=== PATIENT | female | born 1990 | race Caucasian/White ===

== ENCOUNTER 2017-09-07 14:14 | Emergency (ER) | payer MEDICAID ==
[~2017-09-07] VITALS: Ht 157.5 cm; Wt 63.5 kg
[2017-09-07 14:29] VITALS: BP_SYST 122
[2017-09-07 15:39] VITALS: BP_SYST 122
== END 2017-09-07 15:39 | disposition home or self-care (01) ==
LOC: SED 14:14
DX: K52.9 Noninfective gastroenteritis and colitis, unspecified (principal); R03.0 Elevated blood-pressure reading, without diagnosis of hypertension; Z90.49 Acquired absence of other specified parts of digestive tract
CPT/HCPCS: 99283

== ENCOUNTER 2018-05-10 11:14 | Emergency (ER) | payer MEDICAID ==
[~2018-05-10] VITALS: Ht 157.5 cm; Wt 65.3 kg
[2018-05-10 11:27] VITALS: BP_SYST 135
[2018-05-10 12:00] LABS: BILIRUBIN,URINE NEGATIVE (NEGATIVE); BLOOD, URINE NEGATIVE (NEGATIVE); CLARITY/URINE HAZY (CLEAR); COLOR,URINE YELLOW (YELLOW); GLUCOSE,URINE NEGATIVE (NEGATIVE); KETONES,URINE NEGATIVE (NEGATIVE); LEUKOCYTE ESTERASE ,URINE 3+ (NEGATIVE); NITRITE, URINE NEGATIVE (NEGATIVE); PROTEIN URINE NEGATIVE (NEGATIVE); UROBILINOGEN,URINE 0.2 (0.2-1.0)
[2018-05-10 12:13] LABS: BACTERIA,URINE MODERATE /HPF (None Seen); MUCUS,URINE 1+ /LPF (None Seen); WBC,URINE 20-50 /HPF (0-3)
[2018-05-10 14:07] VITALS: BP_SYST 135
== END 2018-05-10 14:07 | disposition home or self-care (01) ==
LOC: SED 11:14
DX: N39.0 Urinary tract infection, site not specified (principal)
CPT/HCPCS: 81000-TC; 81025; 87086; 99283

== ENCOUNTER 2018-06-02 20:27 | Emergency (ER) | payer MEDICAID ==
[~2018-06-02] VITALS: Ht 157.5 cm; Wt 66.2 kg
[2018-06-02 20:44] VITALS: BP_SYST 137
[2018-06-02 21:21] LABS: BILIRUBIN,URINE NEGATIVE (NEGATIVE); CLARITY/URINE CLEAR (CLEAR); COLOR,URINE YELLOW (YELLOW); GLUCOSE,URINE NEGATIVE (NEGATIVE); KETONES,URINE NEGATIVE (NEGATIVE); LEUKOCYTE ESTERASE ,URINE 3+ (NEGATIVE); NITRITE, URINE NEGATIVE (NEGATIVE); PROTEIN URINE NEGATIVE (NEGATIVE); UROBILINOGEN,URINE 0.2 (0.2-1.0)
[2018-06-02 21:22] LABS: BLOOD, URINE TRACE (NEGATIVE)
[2018-06-02 21:23] LABS: BACTERIA,URINE MODERATE /HPF (None Seen); RBC,URINE 0-3 /HPF (0-3); WBC,URINE 50-80 /HPF (0-3)
[2018-06-02] MEDS ORDERED: KETOROLAC TROMETHAMINE 30 MG VIAL IM ONE (22:15)
[2018-06-02] MEDS ORDERED: cefTRIAXone 1 GM VIAL IM ONE (22:15)
[2018-06-02] MEDS ORDERED: LIDOCAINE 1% 10 MG/ML, 20 ML MDV INJ ONE (22:15)
[2018-06-02 22:20] VITALS: BP_SYST 134
== END 2018-06-02 22:20 | disposition home or self-care (01) ==
LOC: SED 20:27
DX: N12 Tubulo-interstitial nephritis, not specified as acute or chronic (principal); Z90.49 Acquired absence of other specified parts of digestive tract
CPT/HCPCS: 74176; 81000; 81025; 87086; 96372; 99284; J0696; J1885; J2001

== ENCOUNTER 2018-08-07 15:57 | Emergency (ER) | payer MEDICAID ==
[~2018-08-07] VITALS: Ht 157.5 cm; Wt 71.2 kg
[2018-08-07 16:04] VITALS: BP_SYST 116
--- NOTE | 2018-08-07 17:39 | NUR ---
Patient to ER [place] 1 to [facility] for evaluation. Side rails up. Report given to Damari CALLE.
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
--- NOTE | 2018-08-07 18:00 | NUR ---
Dr Lieberman at bedside examining patient
[2018-08-07] MEDS: CEPHALEXIN 500 MG CAPSULE PO ONE (18:16)
--- NOTE | 2018-08-07 18:30 | NUR ---
Pt on stable condition,VSS.
[2018-08-07 18:38] LABS: CALCIUM 9.4 mg/dL (8.4-11.0); CREATININE 0.72 mg/dL (0.55-1.30)
[2018-08-07 18:40] LABS: PROTHROMBIN TIME 9.9 SECS (9.5-12.5)
[2018-08-07 18:43] LABS: ALBUMIN 3.5 g/dL (3.4-4.8); TOTAL BILIRUBIN 0.2 mg/dL (0.0-1.0)
[2018-08-07 18:51] LABS: HEMATOCRIT 39.7 % (36-48); HEMOGLOBIN 13.3 g/dL (12.0-16.0); LYMPHOCYTES % (AUTO) 31.1 % (20.5-51.5); MEAN CORPUSCULAR HEMOGLOBIN 29 pg (27-31); MEAN CORPUSCULAR HGB CONC 33 % (32-36); MEAN CORPUSCULAR VOLUME 86 fL (79.0-98.0); NEUTROPHILS % (AUTO) 60.1 % (40.0-70.0); PLATELET COUNT (AUTO) 321 K/uL (130-430); RED CELL DISTRIBUTION WIDTH 12.6 % (9.0-15.0)
[2018-08-07 18:52] LABS: BASOPHILS # (AUTO) 0.1 K/uL (0.0-0.2); BASOPHILS % (AUTO) 0.5 % (0.0-2.0); EOSINOPHILS # (AUTO) 0.1 K/uL (0.0-0.4); EOSINOPHILS % (AUTO) 1.2 % (0.0-4.0); LYMPHOCYTES # (AUTO) 3.4 K/uL (1.0-5.5); MONOCYTES # (AUTO) 0.8 K/uL (0.0-1.0); MONOCYTES % (AUTO) 7.1 % (1.7-9.3); NEUTROPHILS # (AUTO) 6.6 K/uL (1.8-7.7); WHITE BLOOD COUNT (AUTO) 10.9 K/uL (4.8-10.8)
[2018-08-07] MEDS: MORPHINE 4 MG/ML INJ. SYRINGE IM ONE (19:47)
[2018-08-07 20:14] VITALS: BP_SYST 112
--- NOTE | 2018-08-07 20:16 | NUR ---
Patient given written and verbal discharge instructions and verbalizes understanding. ER MD discussed with patient the results and treatment provided. Patient in stable condition. ID arm band removed. Rx of Keflex and [place] given. Patient educated on pain management and to follow up with PMD. Pain Scale 2/10 tolerable for patient . Opportunity for questions provided and answered. Medication side effect fact sheet provided.
--- NOTE | 2018-08-08 16:09 | NUR ---
Pharmacy called with concern that the patient has been previously prescribed tramadol and there was concern about concurrent Rx of [place]. This was not diclosed to Dr. Lieberman yesterday, with this in mind Rx was voided pending follow up with PCP.
== END 2018-08-07 20:14 | disposition home or self-care (01) ==
LOC: SED 15:57
DX: S33.5XXA Sprain of ligaments of lumbar spine, initial encounter (principal); Z90.49 Acquired absence of other specified parts of digestive tract; V43.52XA Car driver injured in collision with other type car in traffic accident, initial encounter; Y93.89 Activity, other specified; Y92.411 Interstate highway as the place of occurrence of the external cause; Y99.8 Other external cause status
CPT/HCPCS: 36415; 72131; 80053; 81002; 81025; 85025; 85610; 87086; 96372; 99284; J2270

== ENCOUNTER 2018-09-02 13:49 | Emergency (ER) | payer MEDICAID ==
[~2018-09-02] VITALS: Ht 157.5 cm; Wt 68.0 kg
[2018-09-02 14:01] VITALS: BP_SYST 125
--- NOTE | 2018-09-02 14:06 | NUR ---
Patient triaged and placed in waiting room. VSS and patient appears in no acute distress at this time. Accompanied by visitor, awaiting available bed, and MD notified of need for MSE.
[2018-09-02 15:04] LABS: BASOPHILS % (AUTO) 0.4 % (0.0-2.0); EOSINOPHILS # (AUTO) 0.1 K/uL (0.0-0.4); EOSINOPHILS % (AUTO) 1.4 % (0.0-4.0); HEMATOCRIT 38.1 % (36-48); HEMOGLOBIN 12.7 g/dL (12.0-16.0); LYMPHOCYTES # (AUTO) 2.8 K/uL (1.0-5.5); LYMPHOCYTES % (AUTO) 29.7 % (20.5-51.5); MEAN CORPUSCULAR HEMOGLOBIN 29 pg (27-31); MEAN CORPUSCULAR HGB CONC 33 % (32-36); MEAN CORPUSCULAR VOLUME 87 fL (79.0-98.0); MONOCYTES # (AUTO) 0.6 K/uL (0.0-1.0); MONOCYTES % (AUTO) 6.7 % (1.7-9.3); NEUTROPHILS # (AUTO) 5.8 K/uL (1.8-7.7); NEUTROPHILS % (AUTO) 61.8 % (40.0-70.0); PLATELET COUNT (AUTO) 300 K/uL (130-430); RED CELL DISTRIBUTION WIDTH 12.3 % (9.0-15.0); WHITE BLOOD COUNT (AUTO) 9.3 K/uL (4.8-10.8)
[2018-09-02 15:33] LABS: POTASSIUM 4.2 mmol/L (3.5-5.1)
[2018-09-02 15:34] LABS: ALBUMIN 3.3 g/dL (3.4-4.8); CALCIUM 9.2 mg/dL (8.4-11.0); CREATININE 0.77 mg/dL (0.55-1.30); TOTAL BILIRUBIN 0.2 mg/dL (0.0-1.0)
--- NOTE | 2018-09-02 15:40 | NUR ---
Patient to ER bed H1 for evaluation. Side rails up.
--- NOTE | 2018-09-02 15:45 | NUR ---
ER Dr. Soto at bedside examining patient.
--- NOTE | 2018-09-02 15:50 | NUR ---
Pt AAOx4 ambulated into ED c/o sore throat, cough, congestion x 5 days. No cough present in ED. Skin pink dry and warm, breathing even and unlabored. No other injuries/complaints per pt/noted. Will continue to monitor.
[2018-09-02 15:52] LABS: BILIRUBIN,URINE NEGATIVE (NEGATIVE); CLARITY/URINE CLEAR (CLEAR); COLOR,URINE YELLOW (YELLOW); GLUCOSE,URINE NEGATIVE (NEGATIVE); KETONES,URINE NEGATIVE (NEGATIVE); LEUKOCYTE ESTERASE ,URINE 1+ (NEGATIVE); NITRITE, URINE NEGATIVE (NEGATIVE); PH,URINE 5.5 (5.0-8.0); PROTEIN URINE NEGATIVE (NEGATIVE); UROBILINOGEN,URINE 0.2 (0.2-1.0)
[2018-09-02 15:59] LABS: BLOOD, URINE TRACE (NEGATIVE)
[2018-09-02 16:00] LABS: BACTERIA,URINE FEW /HPF (None Seen); MUCUS,URINE None Seen /LPF (None Seen); RBC,URINE NONE SEEN /HPF (0-3)
[2018-09-02] MEDS ORDERED: KETOROLAC TROMETHAMINE 30 MG VIAL IM ONE (16:00)
--- NOTE | 2018-09-02 16:07 | NUR ---
Pt refused Toradol
--- NOTE | 2018-09-02 16:13 | NUR ---
Patient given written and verbal discharge instructions and verbalizes understanding. ER MD Soto discussed with patient the results and treatment provided. Patient in stable condition. ID arm band removed. Rx of Chloraseptic, Tylenol given. Patient educated on pain management and to follow up with PMD. Pain Scale 2. MD Soto aware. Opportunity for questions provided and answered. Medication side effect fact sheet provided.
[2018-09-02 16:14] VITALS: BP_SYST 128
== END 2018-09-02 16:14 | disposition home or self-care (01) ==
LOC: SED 13:49
DX: J02.8 Acute pharyngitis due to other specified organisms (principal); B97.89 Other viral agents as the cause of diseases classified elsewhere; R07.89 Other chest pain; R53.83 Other fatigue; R03.0 Elevated blood-pressure reading, without diagnosis of hypertension; Z90.49 Acquired absence of other specified parts of digestive tract
CPT/HCPCS: 36415; 80053; 81000; 81025; 85025; 86403; 87081; 87086; 99283; J1885

== ENCOUNTER 2018-10-24 20:02 | Emergency (ER) | payer MEDICAID ==
[~2018-10-24] VITALS: Ht 157.5 cm; Wt 72.1 kg
[2018-10-24 20:09] VITALS: BP_SYST 135
[2018-10-24 20:53] LABS: BILIRUBIN,URINE NEGATIVE (NEGATIVE); BLOOD, URINE NEGATIVE (NEGATIVE); CLARITY/URINE SL HAZY (CLEAR); COLOR,URINE YELLOW (YELLOW); GLUCOSE,URINE NEGATIVE (NEGATIVE); KETONES,URINE NEGATIVE (NEGATIVE); LEUKOCYTE ESTERASE ,URINE 2+ (NEGATIVE); NITRITE, URINE NEGATIVE (NEGATIVE); PH,URINE 6.5 (5.0-8.0); PROTEIN URINE NEGATIVE (NEGATIVE); UROBILINOGEN,URINE 0.2 (0.2-1.0)
--- NOTE | 2018-10-24 21:00 | NUR ---
Patient to ER bed 05 to gown for evaluation. Side rails up.
[2018-10-24 21:05] LABS: BACTERIA,URINE FEW /HPF (None Seen); MUCUS,URINE None Seen /LPF (None Seen); RBC,URINE 0-3 /HPF (0-3); WBC,URINE 0-3 /HPF (0-3)
--- NOTE | 2018-10-24 21:10 | NUR ---
Patient AOx4, ambulatory, presents to ER with complaint of urinary burning, frequency, abdominal pain 6/10 radiating to lower back, and nausea x1 week. No report of hematuria or fever. Patient states hx of brain tumors and has had 2 brain surgeries. No other symptoms or complaints.
--- NOTE | 2018-10-24 22:02 | NUR ---
ER MD Lieberman at bedside for medical evaluation.
[2018-10-24 22:53] LABS: BASOPHILS # (AUTO) 0.1 K/uL (0.0-0.2); EOSINOPHILS # (AUTO) 0.3 K/uL (0.0-0.4); EOSINOPHILS % (AUTO) 2.9 % (0.0-4.0); HEMATOCRIT 36.6 % (36-48); HEMOGLOBIN 12.3 g/dL (12.0-16.0); LYMPHOCYTES # (AUTO) 3.5 K/uL (1.0-5.5); LYMPHOCYTES % (AUTO) 38.4 % (20.5-51.5); MEAN CORPUSCULAR HEMOGLOBIN 29 pg (27-31); MEAN CORPUSCULAR HGB CONC 34 % (32-36); MEAN CORPUSCULAR VOLUME 85 fL (79.0-98.0); MONOCYTES # (AUTO) 0.6 K/uL (0.0-1.0); MONOCYTES % (AUTO) 6.9 % (1.7-9.3); NEUTROPHILS # (AUTO) 4.6 K/uL (1.8-7.7); NEUTROPHILS % (AUTO) 50.8 % (40.0-70.0); PLATELET COUNT (AUTO) 298 K/uL (130-430); RED BLOOD CELL COUNT(AUTO) 4.29 MIL/uL (4.2-6.2); WHITE BLOOD COUNT (AUTO) 9.1 K/uL (4.8-10.8)
[2018-10-24 23:04] LABS: CALCIUM 8.8 mg/dL (8.4-11.0); CREATININE 0.79 mg/dL (0.55-1.30); POTASSIUM 4.2 mmol/L (3.5-5.1)
[2018-10-24 23:10] LABS: ALBUMIN 2.9 g/dL (3.4-4.8); TOTAL BILIRUBIN 0.1 mg/dL (0.0-1.0)
[2018-10-24] MEDS ORDERED: NITROFURANTOIN MONOHYD/M-CRYST 100 MG CAPSULE PO ONE (23:30)
[2018-10-24] MEDS ORDERED: PHENAZOPYRIDINE HCL 100 MG TABLET PO ONE (23:30)
[2018-10-24] MEDS ORDERED: PHENAZOPYRIDINE HCL 100 MG TABLET ONE (23:43)
[2018-10-24 23:54] VITALS: BP_SYST 132
--- NOTE | 2018-10-24 23:54 | NUR ---
Patient given written and verbal discharge instructions and verbalizes understanding. ER MD discussed with patient the results and treatment provided. Patient in stable condition. ID arm band removed. Rx of Pyridium and Macrobid given. Patient educated on pain management and to follow up with PMD. Pain Scale 0/10. Opportunity for questions provided and answered. Medication side effect fact sheet provided.
== END 2018-10-24 23:54 | disposition home or self-care (01) ==
LOC: SED 20:02
DX: N39.0 Urinary tract infection, site not specified (principal); R03.0 Elevated blood-pressure reading, without diagnosis of hypertension
CPT/HCPCS: 36415; 80053; 81000-TC; 85025; 87086; 99283

== ENCOUNTER 2020-06-12 14:16 | Emergency (ER) | payer MEDICAID ==
[~2020-06-12] VITALS: Ht 160 cm; Wt 65.8 kg
[2020-06-12 14:35] VITALS: BP_SYST 121
[2020-06-12] MEDS ORDERED: NITR-85 PO (15:05)
[2020-06-12] MEDS ORDERED: PHEN-890 PO (15:05)
[2020-06-12 15:36] LABS: BILIRUBIN,URINE NEGATIVE (NEGATIVE); BLOOD, URINE NEGATIVE (NEGATIVE); COLOR,URINE YELLOW (YELLOW); GLUCOSE,URINE NEGATIVE (NEGATIVE); KETONES,URINE NEGATIVE (NEGATIVE); LEUKOCYTE ESTERASE ,URINE 1+ (NEGATIVE); NITRITE, URINE NEGATIVE (NEGATIVE); PROTEIN URINE NEGATIVE (NEGATIVE); UROBILINOGEN,URINE 0.2 (0.2-1.0)
[2020-06-12 15:37] LABS: CLARITY/URINE SLIGHTLY HAZY (CLEAR)
[2020-06-12 15:49] VITALS: BP_SYST 119
[2020-06-12 16:05] LABS: BACTERIA,URINE FEW /HPF (None Seen); RBC,URINE NONE SEEN /HPF (0-3)
[2020-06-12 16:06] LABS: MUCUS,URINE None Seen /LPF (None Seen)
== END 2020-06-12 15:51 | disposition home or self-care (01) ==
LOC: SED 14:16
DX: N39.0 Urinary tract infection, site not specified (principal)
CPT/HCPCS: 81000-TC; 87086; 99283

== ENCOUNTER 2020-06-14 19:50 | Emergency (ER) | payer MEDICAID, SELFPAY ==
[~2020-06-14] VITALS: Ht 162.6 cm; Wt 65.8 kg
[~2020-06-14 19:50] MED LIST: NITR-85 PO; PHEN-890 PO
[2020-06-14 19:58] VITALS: BP_SYST 128
[2020-06-14 20:38] VITALS: BP_SYST 128
== END 2020-06-14 20:38 | disposition home or self-care (01) ==
LOC: SED 19:50
DX: J02.8 Acute pharyngitis due to other specified organisms (principal); B97.89 Other viral agents as the cause of diseases classified elsewhere; Z79.899 Other long term (current) drug therapy
CPT/HCPCS: 36415; 86403; 87081; 99283

== ENCOUNTER 2020-10-07 15:33 | Emergency (ER) | payer MEDICAID, SELFPAY ==
[~2020-10-07] VITALS: Ht 160 cm; Wt 68.0 kg
[2020-10-07 15:52] VITALS: BP_SYST 133
--- NOTE | 2020-10-07 16:15 | NUR ---
RECEIVED AND IN ROOM, CALM, ALERT, RESP UNLABORED, SKIN WARM AND DRY
--- NOTE | 2020-10-07 16:33 | NUR ---
FRANCISCO TO ASSUME CARE, HERE FOR C/O FLU-LIKE SYMPTOMS, RESP UNLABORED, SKIN WARM AND DRY. DENIES CP/SOB. RECENT EPISODES OF FEVER/CHILLS
--- NOTE | 2020-10-07 17:00 | NUR ---
DR CANTU AT BEDSIDE
--- NOTE | 2020-10-07 17:40 | NUR ---
CALM, ALERT, RESP UNLABORED, SKIN WARM AND DRY. NO DISTRESS
--- NOTE | 2020-10-07 18:59 | NUR ---
DR CANTU IN TO REASSESS
[2020-10-07 19:10] VITALS: BP_SYST 115
--- NOTE | 2020-10-07 19:11 | NUR ---
Patient given written and verbal discharge instructions and verbalizes understanding. ER MD discussed with patient the results and treatment provided. Patient in stable condition. ID arm band removed. atient educated on pain management and to follow up with PMD. Pain Scale 0/10 Opportunity for questions provided and answered.
== END 2020-10-07 19:10 | disposition home or self-care (01) ==
LOC: SED 15:33
DX: J11.1 Influenza due to unidentified influenza virus with other respiratory manifestations (principal); Z79.899 Other long term (current) drug therapy; Z20.822 Contact with and (suspected) exposure to COVID-19
CPT/HCPCS: 36415; 81025; 86710; 99283

== ENCOUNTER 2020-10-30 16:37 | Emergency (ER) | payer MEDICAID ==
[~2020-10-30] VITALS: Ht 160 cm; Wt 68.0 kg
[2020-10-30 16:37] VITALS: BP_SYST 114
--- NOTE | 2020-10-30 16:37 | NUR ---
BROUGHT BACK TO BED #8 AND TRIAGED. REPORT GIVEN TO BRIA/BYRON
--- NOTE | 2020-10-30 16:46 | NUR ---
PT CAME TO THE ER FOR COMPLAINTS OF DIZZYNESS AND NAUSEA SINCE THIS MORNING. PATIENT ALSO STATED SHE HAS ABDOMINAL PAIN OF 9/10 WHICH STARTED IN THE MORNING WELL. PT STATES THIS IS HER FIRST TIME EXPERIENCING THIS KIND OF PAIN.
--- NOTE | 2020-10-30 17:12 | NUR ---
ER at bedside examining patient.
[2020-10-30] MEDS ORDERED: NACL 0.9% 1,000 ML IV ONE (17:15)
[2020-10-30] MEDS ORDERED: DIPHENHYDRAMINE INJ 50 MG/ML VIAL IVP ONE (17:15)
[2020-10-30] MEDS ORDERED: ONDANSETRON HCL 4 MG/2 ML VIAL IVP ONE (17:15)
[2020-10-30 17:34] LABS: BILIRUBIN,URINE NEGATIVE (NEGATIVE); BLOOD, URINE NEGATIVE (NEGATIVE); COLOR,URINE YELLOW (YELLOW); GLUCOSE,URINE NEGATIVE (NEGATIVE); KETONES,URINE TRACE (NEGATIVE); LEUKOCYTE ESTERASE ,URINE 3+ (NEGATIVE); NITRITE, URINE NEGATIVE (NEGATIVE); PH,URINE 7.5 (5.0-8.0); PROTEIN URINE NEGATIVE (NEGATIVE); UROBILINOGEN,URINE 0.2 (0.2-1.0)
[2020-10-30 17:35] LABS: CLARITY/URINE SLIGHTLY HAZY (CLEAR)
[2020-10-30 17:44] LABS: RBC,URINE 0-3 /HPF (0-3)
[2020-10-30 17:45] LABS: BACTERIA,URINE FEW /HPF (None Seen)
[2020-10-30 17:54] LABS: BASOPHILS % (AUTO) 0.5 % (0.0-2.0); EOSINOPHILS % (AUTO) 0.5 % (0.0-4.0); HEMATOCRIT 39.6 % (36-48); HEMOGLOBIN 13.4 g/dL (12.0-16.0); LYMPHOCYTES # (AUTO) 0.7 K/uL (1.0-5.5); MEAN CORPUSCULAR HEMOGLOBIN 29 pg (27-31); MEAN CORPUSCULAR HGB CONC 34 % (32-36); MEAN CORPUSCULAR VOLUME 85 fL (79.0-98.0); MONOCYTES # (AUTO) 0.4 K/uL (0.0-1.0); MONOCYTES % (AUTO) 4.5 % (1.7-9.3); NEUTROPHILS # (AUTO) 7.7 K/uL (1.8-7.7); NEUTROPHILS % (AUTO) 86.5 % (40.0-70.0); PLATELET COUNT (AUTO) 254 K/uL (130-430); RED BLOOD CELL COUNT(AUTO) 4.64 MIL/uL (4.2-6.2); RED CELL DISTRIBUTION WIDTH 12.5 % (9.0-15.0)
[2020-10-30 18:08] LABS: CALCIUM 8.8 mg/dL (8.4-11.0); CREATININE 0.75 mg/dL (0.55-1.30); POTASSIUM 3.9 mmol/L (3.5-5.1)
[2020-10-30 18:13] LABS: ALBUMIN 3.6 g/dL (3.4-4.8); TOTAL BILIRUBIN 0.6 mg/dL (0.0-1.0)
[2020-10-30] MEDS ORDERED: NITR-85 PO (18:37)
[2020-10-30] MEDS ORDERED: NITROFURANTOIN MONOHYD/M-CRYST 100 MG CAPSULE (MacroBID) PO ONE (18:45)
--- NOTE | 2020-10-30 19:05 | NUR ---
SBAR GIVEN TO ALVA GONZALEZ. SHE WILL ASSUME CARE OF PT
--- NOTE | 2020-10-30 19:06 | NUR ---
Received endorsement from day shift, AAOX4, breathing spontaneously at room air, not in distress noted. Vital signs stable
[2020-10-30 19:20] VITALS: BP_SYST 124
--- NOTE | 2020-10-30 19:20 | NUR ---
Patient given written and verbal discharge instructions and verbalizes understanding. ER MD discussed with patient the results and treatment provided. Patient in stable condition. ID arm band removed. IV catheter removed intact and dressing applied, no active bleeding. Rx of Nitrofurantoin given. Patient educated on pain management and to follow up with PMD. Pain Scale 0/10. Opportunity for questions provided and answered. Medication side effect fact sheet provided.
== END 2020-10-30 19:20 | disposition home or self-care (01) ==
LOC: SED 16:37
DX: N39.0 Urinary tract infection, site not specified (principal); R11.2 Nausea with vomiting, unspecified; Z79.899 Other long term (current) drug therapy
CPT/HCPCS: 36415; 80053; 81000; 85025; 87086; 96361; 96374; 96375; 99284; J1200; J2405; J7030

== ENCOUNTER 2021-05-18 13:49 | Emergency (ER) | payer MEDICAID, SELFPAY ==
[~2021-05-18] VITALS: Ht 160 cm; Wt 64.9 kg
[2021-05-18 15:49] VITALS: BP_SYST 149
--- NOTE | 2021-05-18 15:49 | NUR ---
Patient to ER TENT for evaluation.
--- NOTE | 2021-05-18 15:54 | NUR ---
Patient to ER TENT for evaluation.
--- NOTE | 2021-05-18 15:55 | NUR ---
PATIENT BROUGHT IN COMPLAINING OF SORE THROAT, BACK PAIN, FATIGUE, NASAL CONGESTION. PATIENT ABLE TO SPEAK FULL SENTENCES. NO ACUTE DISTRESS NOTED. NO OTHER COMPLAINTS/INJURIES PER PATIENT OR NOTED .
[2021-05-18] MEDS ORDERED: CEFU250T85 PO (17:02)
[2021-05-18 17:15] LABS: BILIRUBIN,URINE NEGATIVE (NEGATIVE); BLOOD, URINE NEGATIVE (NEGATIVE); CLARITY/URINE SL CLOUDY (CLEAR); COLOR,URINE YELLOW (YELLOW); GLUCOSE,URINE NEGATIVE (NEGATIVE); KETONES,URINE NEGATIVE (NEGATIVE); LEUKOCYTE ESTERASE ,URINE NEGATIVE (NEGATIVE); NITRITE, URINE NEGATIVE (NEGATIVE); PH,URINE 7.5 (5.0-8.0); PROTEIN URINE NEGATIVE (NEGATIVE); UROBILINOGEN,URINE 0.2 (0.2-1.0)
[2021-05-18 17:22] VITALS: BP_SYST 132
--- NOTE | 2021-05-18 17:22 | NUR ---
Patient given written and verbal discharge instructions and verbalizes understanding. ER MD discussed with patient the results and treatment provided. Patient in stable condition. ID arm band removed. Rx of ceftin given. Patient educated on pain management and to follow up with PMD. Pain Scale 0/10 Opportunity for questions provided and answered. Medication side effect fact sheet provided.
[2021-05-18 17:47] LABS: BACTERIA,URINE FEW /HPF (None Seen); RBC,URINE 0-3 /HPF (0-3); URINE AMORPHOUS PHOSPHATES 2+ /HPF (None Seen)
[2021-05-18 17:48] LABS: COARSE GRANULAR CASTS,URINE 0-10 /LPF (None Seen); MUCUS,URINE None Seen /LPF (None Seen)
== END 2021-05-18 17:22 | disposition home or self-care (01) ==
LOC: SED 13:49
DX: B34.9 Viral infection, unspecified (principal); N39.0 Urinary tract infection, site not specified; E11.9 Type 2 diabetes mellitus without complications; Z20.822 Contact with and (suspected) exposure to COVID-19
CPT/HCPCS: 36415; 71045; 81000; 87086; 87426; 99284; C9803; U0003

== ENCOUNTER 2021-11-18 13:02 | Emergency (ER) | payer MEDICAID ==
[~2021-11-18] VITALS: Ht 157.5 cm; Wt 54.4 kg
[~2021-11-18 13:02] MED LIST changes: +CEFU250T85 PO; -NITR-85 PO; -PHEN-890 PO
[2021-11-18 13:30] VITALS: BP_SYST 124
--- NOTE | 2021-11-18 14:00 | NUR ---
Patient to ER bed Tent 2 for evaluation. Side rails up.
--- NOTE | 2021-11-18 14:16 | NUR ---
Assumed care of patient who came from home c/o cold/flu symptoms. Patients states she worked alongside a coworker last week who tested + for COVID on Tuesday. Patient has taken two COVID tests that have been negative. Patient states she has a hx of brain tumors and last brain surgery took place in 2017. Patients VS WNL and appears in no acute distress.
--- NOTE | 2021-11-18 16:17 | NUR ---
AMANDA Sr at bedside examining patient.
[2021-11-18] MEDS ORDERED: DEXAMETHASONE SOD PHOSPHATE 4 MG/ML VIAL PO ONE (17:30)
[2021-11-18] MEDS ORDERED: traMADol HCL HCL 50 MG TABLET (ULTRAM) PO ONE (17:30)
[2021-11-18] MEDS ORDERED: IBUP-1969 PO (18:15)
[2021-11-18] MEDS ORDERED: TRAM50TA2 PO (18:15)
[2021-11-18] MEDS ORDERED: DECADRON 4 MG TABLET ONE (20:09)
[2021-11-18] MEDS ORDERED: traMADol HCL HCL 50 MG TABLET (ULTRAM) ONE (20:09)
[2021-11-18 20:23] VITALS: BP_SYST 127
== END 2021-11-18 20:23 | disposition home or self-care (01) ==
LOC: SED 13:02
DX: J02.8 Acute pharyngitis due to other specified organisms (principal); B97.89 Other viral agents as the cause of diseases classified elsewhere; Z20.822 Contact with and (suspected) exposure to COVID-19
CPT/HCPCS: 99283; 87426; 86403; 36415; 87081; 87804 ×2; J8540

== ENCOUNTER 2022-07-26 10:00 | Emergency (ER) | payer MEDICAID ==
[~2022-07-26] VITALS: Ht 160 cm; Wt 68.0 kg
[~2022-07-26 10:00] MED LIST changes: +IBUP-1969 PO; +TRAM50TA2 PO
[2022-07-26 10:43] VITALS: BP_SYST 149
--- NOTE | 2022-07-26 11:25 | NUR ---
Placed in room 7 . Placed on residential monitor, blood pressure machine and pulse oximeter. To gown for exam. Side rails up. Report given to
[2022-07-26] MEDS ORDERED: KETOROLAC TROMETHAMINE 60 MG/2 ML VIAL IM ONE (11:30)
--- NOTE | 2022-07-26 11:30 | NUR ---
ER at bedside examining patient.
--- NOTE | 2022-07-26 11:39 | NUR ---
ALL RESULT BACK EDP REASSESS PATIENT AND D/C HOME WITH INSTRUCTION.
[2022-07-26 11:53] LABS: BASOPHILS % (AUTO) 0.6 % (0.0-2.0); EOSINOPHILS % (AUTO) 0.5 % (0.0-4.0); HEMATOCRIT 39.3 % (36-48); HEMOGLOBIN 13.1 g/dL (12.0-16.0); LYMPHOCYTES % (AUTO) 26.7 % (20.5-51.5); MEAN CORPUSCULAR HEMOGLOBIN 29 pg (27-31); MEAN CORPUSCULAR HGB CONC 33 % (32-36); MEAN CORPUSCULAR VOLUME 86 fL (79.0-98.0); MONOCYTES # (AUTO) 0.5 K/uL (0.0-1.0); MONOCYTES % (AUTO) 5.9 % (1.7-9.3); NEUTROPHILS # (AUTO) 5.1 K/uL (1.8-7.7); NEUTROPHILS % (AUTO) 66.3 % (40.0-70.0); PLATELET COUNT (AUTO) 308 K/uL (130-430); RED BLOOD CELL COUNT(AUTO) 4.57 MIL/uL (4.2-6.2); RED CELL DISTRIBUTION WIDTH 12.5 % (9.0-15.0); WHITE BLOOD COUNT (AUTO) 7.6 K/uL (4.8-10.8)
[2022-07-26 12:09] LABS: CALCIUM 9.6 mg/dL (8.4-11.0); CREATININE 0.88 mg/dL (0.55-1.30)
[2022-07-26 12:26] LABS: ALBUMIN 3.6 g/dL (3.4-4.8); C-REACTIVE PROTEIN QUANT 0.7 mg/dL (0-0.5); TOTAL BILIRUBIN 0.2 mg/dL (0.0-1.0)
[2022-07-26] MEDS ORDERED: TRAM50TA2 PO (13:35)
[2022-07-26] MEDS ORDERED: IBUP-1969 PO (13:35)
[2022-07-26 13:39] LABS: BILIRUBIN,URINE NEGATIVE (NEGATIVE); BLOOD, URINE NEGATIVE (NEGATIVE); COLOR,URINE YELLOW (YELLOW); GLUCOSE,URINE NEGATIVE (NEGATIVE); KETONES,URINE NEGATIVE (NEGATIVE); LEUKOCYTE ESTERASE ,URINE 2+ (NEGATIVE); NITRITE, URINE NEGATIVE (NEGATIVE); PROTEIN URINE NEGATIVE (NEGATIVE); UROBILINOGEN,URINE 0.2 (0.2-1.0)
[2022-07-26 13:42] LABS: CLARITY/URINE SLIGHTLY HAZY (CLEAR)
[2022-07-26 13:56] LABS: BACTERIA,URINE FEW /HPF (None Seen); RBC,URINE 0-3 /HPF (0-3)
--- NOTE | 2022-07-26 14:00 | NUR ---
Patient given written and verbal discharge instructions and verbalizes understanding. ER MD discussed with patient the results and treatment provided. Patient in stable condition. ID arm band removed. Rx of MOTRIN,TRAMADOL given. Patient educated on pain management and to follow up with PMD. Pain Scale 0. Opportunity for questions provided and answered. Medication side effect fact sheet provided.
== END 2022-07-26 14:00 | disposition home or self-care (01) ==
LOC: SED 10:00
DX: R10.13 Epigastric pain (principal); Z79.899 Other long term (current) drug therapy
CPT/HCPCS: 99285; 74176; 80053; 81000; 82150; 84703; 83690; 85025; 86140; 87086; 36415; 76376; 96372; 83605; J1885

== ENCOUNTER 2023-01-29 17:43 | Emergency (ER) | payer MEDICAID ==
[~2023-01-29] VITALS: Ht 160 cm; Wt 73.9 kg
[2023-01-29 17:57] VITALS: BP_SYST 150; PULSE 84; RESP 20; TEMP 97.6; O2SAT 100
[2023-01-29] MEDS ORDERED: IBUP-1971 PO (20:04)
[2023-01-29 20:21] VITALS: BP_SYST 146; PULSE 81; RESP 19; TEMP 97.6; O2SAT 100
== END 2023-01-29 20:19 | disposition home or self-care (01) ==
LOC: SED 17:43
DX: S93.401A Sprain of unspecified ligament of right ankle, initial encounter (principal); S93.402A Sprain of unspecified ligament of left ankle, initial encounter; Z79.899 Other long term (current) drug therapy; V89.2XXA Person injured in unspecified motor-vehicle accident, traffic, initial encounter; Y93.89 Activity, other specified; Y92.89 Other specified places as the place of occurrence of the external cause; Y99.8 Other external cause status
CPT/HCPCS: 93970; 99284